=== PATIENT | female | born 1990 | race Native Hawaiian/Other Pacific Islander ===

== ENCOUNTER 2019-04-15 00:13 | Emergency (ER) | payer OTHER ==
[2019-04-15] MEDS ORDERED: MORPHINE 4 MG/1 ML INJ IM ONE (01:18)
[2019-04-15] MEDS ORDERED: ONDANSETRON 4 MG/2 ML INJ IM ONE (01:18)
--- NOTE | 2019-04-15 01:21 | Emergency Department Report ---
ED Chest Pain HPI - General Chief Complaint: Dyspnea/Respdistress Stated Complaint: REDD CHEST PAIN Time Seen by Provider: 04/15/19 01:17 Source: patient Mode of arrival: Ambulatory Limitations: No Limitations - History of Present Illness Initial Comments: 29-year-old female presents to the emergency room complaining of chest pain and shortness of breath about 40 minutes. Patient states this started about 11:30 PM tonight. Patient states that the pain is intermittent but has gotten worse this time. Patient states that the pain starts in the middle of her chest radiates to her back and into her left arm. Patient admits to shortness of breath nausea dizziness and cold sweat. Patient denies any fever. Patient reports a past medical history of hepatitis and lead poisoning as a child. Patient is 2 para 2 last menstrual period 03/09/2019. She reports no medications on a daily basis has no known drug allergies. MD Complaint: chest pain -: During the night Time: 23:30 Onset: during rest Pain Location: substernal Pain Radiation: LUE, back Severity scale (0 -10): 8 Quality: tightness Improves With: nothing Worsens With: nothing re: nausea, diaphoresis, dyspnea. denies: vomting, sense of impending doom Treatments Prior to Arrival: none - Related Data Previous Rx's Medication Instructions Recorded Last Taken Type Ibuprofen [Motrin 600 MG tab] 600 mg PO Q8H PRN #21 tablet 04/15/19 Unknown Rx Allergies Allergy/AdvReac Type Severity Reaction Status Date / Time No Known Allergies Allergy Unverified 04/15/19 00:22 Heart Score - HEART Score History: Slightly suspicious EKG: Normal Age: < 45 Risk factors: No known risk factors Troponin: < normal limit HEART Score: 0 ED Review of Systems ROS: Stated complaint: REDD CHEST PAIN Other details as noted in HPI Comment: All other systems reviewed and negative ED Past Medical Hx - Past Medical History Previous Medical History?: Yes Additional medical history: hepatitis - Surgical History Past Surgical History?: Yes Additional Surgical History: c-sec X 2 - Social History Smoking Status: Former Smoker Substance Use Type: None - Medications Home Medications: Home Medications Medication Instructions Recorded Confirmed Last Taken Type Ibuprofen [Motrin 600 MG tab] 600 mg PO Q8H PRN #21 tablet 04/15/19 Unknown Rx ED Physical Exam - General Limitations: No Limitations General appearance: alert, in no apparent distress - Head Head exam: Present: atraumatic, normocephalic - Eye Eye exam: Present: normal appearance - ENT ENT exam: Present: mucous membranes moist - Neck Neck exam: Present: normal inspection, full ROM. Absent: tenderness, lymphadenopathy - Respiratory Respiratory exam: Present: normal lung sounds bilaterally, chest wall tenderness. Absent: respiratory distress, wheezes, accessory muscle use, decreased breath sounds - Cardiovascular Cardiovascular Exam: Present: regular rate, normal rhythm. Absent: systolic murmur, diastolic murmur, rubs, gallop - GI/Abdominal GI/Abdominal exam: Present: soft, normal bowel sounds - Back Exam Back exam: Present: normal inspection, full ROM - Neurological Exam Neurological exam: Present: alert, oriented X3 - Psychiatric Psychiatric exam: Present: normal affect, normal mood - Skin Skin exam: Present: warm, dry, intact, normal color. Absent: rash ED Course Vital Signs 04/15/19 00:17 Temperature 98.0 F Pulse Rate 83 Respiratory 18 Rate Blood Pressure 127/70 O2 Sat by Pulse 98 Oximetry RASHAWN score - Rashawn Score Age > 65: (0) No Aspirin use within the Past 7 Days: (0) No 3 or more CAD Risk Factors: (0) No 2 or more Angina events in past 24 hrs: (0) No Known CAD with more than 50% Stenosis: (0) No Elevated Cardiac Markers: (0) No ST Deviation Greater than 0.5mm: (0) No RASHAWN Score: 0 ED Medical Decision Making - Lab Data Result diagrams: 04/15/19 01:23 04/15/19 01:23 Laboratory Tests 04/15/19 04/15/19 01:23 01:23 WBC 7.8 RBC 4.22 Hgb 13.1 Hct 38.6 MCV 92 MCH 31 MCHC 34 RDW 13.9 Plt Count 236 Lymph % (Auto) 41.2 H Drew % (Auto) 8.8 H Eos % (Auto) 2.2 Baso % (Auto) 0.5 Lymph # 3.2 Drew # 0.7 Eos # 0.2 Baso # 0.0 Seg Neutrophils % 47.3 Seg Neutrophils # 3.7 Sodium 140 Potassium 3.5 L Chloride 107.2 H Carbon Dioxide 19 L Anion Gap 17 BUN 11 Creatinine 0.6 L Estimated GFR > 60 BUN/Creatinine Ratio 18 Glucose 101 H Calcium 9.0 Total Bilirubin 0.30 AST 50 H ALT 104 H Alkaline Phosphatase 78 Troponin T < 0.010 Total Protein 6.9 Albumin 4.2 Albumin/Globulin Ratio 1.6 - EKG Data EKG shows normal: sinus rhythm Rate: normal - Radiology Data Chest x-ray shows no cardiopulmonary abnormalities. - Medical Decision Making 29-year-old female presents to the emergency room complaining of chest pain and shortness of breath about 40 minutes. Patient states this started abo ut 11:30 PM tonight. Patient states that the pain is intermittent but has gotten worse this time. Patient states that the pain starts in the middle of her chest radiates to her back and into her left arm. Patient admits to shortness of breath nausea dizziness and cold sweat. Patient denies any fever. Patient reports a past medical history of hepatitis and lead poisoning as a child. Patient is 2 para 2 last menstrual period 03/09/2019. She reports no medications on a daily basis has no known drug allergies. Critical care attestation.: If time is entered above; I have spent that time in minutes in the direct care of this critically ill patient, excluding procedure time. ED Disposition Clinical Impression: Chest wall tenderness, Hypokalemia Disposition: DC-01 TO HOME OR SELFCARE Is pt being admited?: No Does the pt Need Aspirin: No Condition: Stable Instructions: Chest Pain (ED), Costochondritis (ED) Additional Instructions: Take pain medication as needed. Increase her potassium fruits such as banana apricots avocados. Follow-up with her primary care provider. Prescriptions: Ibuprofen [Motrin 600 MG tab] 600 mg PO Q8H PRN #21 tablet PRN Reason: Pain Referrals: [facility] [Outside] - 3-5 Days [facility] [Provider Group] - 3-5 Days Forms: Work/School Release Form(ED), Accompanied Note
--- NOTE | 2019-04-15 01:32 | XRay Report ---
CHEST 1 VIEW, 04/15/2019 12:42 AM CLINICAL INFORMATION/INDICATION: Chest pain COMPARISON: None FINDINGS: SUPPORT DEVICES: None. HEART: Cardiac silhouette and pulmonary vascularity are within normal limits. LUNGS/PLEURA: The lungs are well expanded and appear clear of airspace disease or pleural effusion. ADDITIONAL FINDINGS: No additional acute findings. IMPRESSION: 1. No evidence of acute cardiopulmonary process. Signer Name: Lisa Finch MD Signed: 04/15/2019 1:28 AM Workstation Name: [id number]
[2019-04-15 01:35] LABS: Basophils % (Auto) 0.5 % (0.0-1.8); Eosinophils # (Auto) 0.2 K/mm3 (0.0-0.4); Eosinophils % (Auto) 2.2 % (0.0-4.3); Hematocrit 38.6 % (30.3-42.9); Hemoglobin 13.1 gm/dl (10.1-14.3); Lymphocytes # (Auto) 3.2 K/mm3 (1.2-5.4); Lymphocytes % (Auto) 41.2 % (13.4-35.0); Mean Corpuscular HGB Conc 34 % (30-34); Mean Corpuscular Volume 92 fl (79-97); Monocytes # (Auto) 0.7 K/mm3 (0.0-0.8); Monocytes % (Auto) 8.8 % (0.0-7.3); Platelet Count 236 K/mm3 (140-440); Red Blood Count 4.22 M/mm3 (3.65-5.03); Red Cell Distribution Width 13.9 % (13.2-15.2)
[2019-04-15 02:00] LABS: Alanine Aminotransferase 104 units/L (7-56); Albumin 4.2 g/dL (3.9-5); BUN/Creatinine Ratio 18; Blood Urea Nitrogen 11 mg/dL (7-17); Hemolysis Index 8
[2019-04-15 02:52] VITALS: BP 107/45
== END 2019-04-15 02:58 | disposition home or self-care (01) ==
LOC: ED 00:13
DX: R07.89 Other chest pain (principal); R06.02 Shortness of breath; E87.6 Hypokalemia; Z87.891 Personal history of nicotine dependence; Z98.890 Other specified postprocedural states
CPT/HCPCS: 36415; 71045; 80053; 84484; 85025; 93005; 93010; 96372; 99284; J2270; J2405

== ENCOUNTER 2019-09-28 12:37 | Emergency (ER) | payer OTHER ==
--- NOTE | 2019-09-28 15:35 | Emergency Department Report ---
ED Female HPI - General Chief complaint: Urogenital-Female Stated complaint: LUMP ON LEG Time Seen by Provider: 09/28/19 15:01 Source: patient Mode of arrival: Ambulatory Limitations: No Limitations - History of Present Illness Initial comments: This is a 29-year-old female who presents to the ED complaining of right groin pain for the past 3 days. Patient states she has noticed pain in the groin area for the past 3 days, worsened with her pressing on the area. She denies swelling redness or any changes to the outer appearance. She denies feve r/chills/nausea vomiting/abdominal pain/any urinary symptoms or vaginal discharge. - Related Data Previous Rx's Medication Instructions Recorded Last Taken Type Ibuprofen [Motrin 600 MG tab] 600 mg PO Q8H PRN #21 tablet 04/15/19 Unknown Rx Ibuprofen [Motrin] 800 mg PO Q8HR #30 tablet 09/28/19 Unknown Rx Sulfamethoxazole/Trimethoprim 1 each PO BID #20 tablet 09/28/19 Unknown Rx [Bactrim DS TAB] Allergies Allergy/AdvReac Type Severity Reaction Status Date / Time No Known Allergies Allergy Unverified 04/15/19 00:22 ED Review of Systems ROS: Stated complaint: LUMP ON LEG Other details as noted in HPI Comment: All other systems reviewed and negative ED Past Medical Hx - Past Medical History Previous Medical History?: Yes Additional medical history: hepatitis - Surgical History Past Surgical History?: Yes Additional Surgical History: c-sec X 2 - Social History Smoking Status: Never Smoker Substance Use Type: None - Medications Home Medications: Home Medications Medication Instructions Recorded Confirmed Last Taken Type Ibuprofen [Motrin 600 MG tab] 600 mg PO Q8H PRN #21 tablet 04/15/19 Unknown Rx Ibuprofen [Motrin] 800 mg PO Q8HR #30 tablet 09/28/19 Unknown Rx Sulfamethoxazole/Trimethoprim 1 each PO BID #20 tablet 09/28/19 Unknown Rx [Bactrim DS TAB] ED Physical Exam - General Limitations: No Limitations General appearance: alert, in no apparent distress - Head Head exam: Present: atraumatic, normocephalic - Eye Eye exam: Present: normal appearance - ENT ENT exam: Present: mucous membranes moist - Neck Neck exam: Present: normal inspection - Respiratory Respiratory exam: Present: normal lung sounds bilaterally. Absent: respiratory distress - Cardiovascular Cardiovascular Exam: Present: regular rate, normal rhythm. Absent: systolic murmur, diastolic murmur, rubs, gallop - GI/Abdominal GI/Abdominal exam: Present: soft, normal bowel sounds. Absent: distended, tenderness - External exam: Present: normal external exam, other (Lymph node palpated, Right inner groin tenderness, no swelling). Absent: erythema, swelling, lesions, bleeding - Extremities Exam Extremities exam: Present: normal inspection - Back Exam Back exam: Present: normal inspection - Neurological Exam Neurological exam: Present: alert, oriented X3 - Psychiatric Psychiatric exam: Present: normal affect, normal mood - Skin Skin exam: Present: warm, dry, intact, normal color. Absent: rash ED Course Vital Signs 09/28/19 12:50 Temperature 98.5 F Pulse Rate 77 Respiratory 20 Rate Blood Pressure 141/75 O2 Sat by Pulse 98 Oximetry ED Medical Decision Making - Medical Decision Making 29-year-old female presents with right groin pain secondary to lymphadenitis. Patient had no signs of abscess or erythema/cellulitis to the right inner groin area. Discussed with patient sometimes lymph nodes get swollen and painful for some secondary infection. Discussed with patient we will treat with antibiotics. Discussed with patient follow-up with [employer] for further testing. Discussed if symptoms worsen or new symptoms arise to return to the ED. Critical care attestation.: If time is entered above; I have spent that time in minutes in the direct care of this critically ill patient, excluding procedure time. ED Disposition Clinical Impression: Lymph node enlargement, Lymphadenitis Disposition: DC-01 TO HOME OR SELFCARE Is pt being admited?: No Does the pt Need Aspirin: No Condition: Stable Instructions: Lymphadenopathy (ED), Adenitis (ED) Additional Instructions: Make sure to follow up with the primary care physician as discussed. Take all your medications as you've been prescribed. If you have any worsening symptoms or develop new symptoms please return to ED immediately. Prescriptions: Sulfamethoxazole/Trimethoprim [Bactrim DS TAB] 1 each PO BID #20 tablet Ibuprofen [Motrin] 800 mg PO Q8HR #30 tablet Referrals: PRIMARY CARE, [Primary Care Provider] - 3-5 Days [facility] [Outside] - 3-5 Days [facility] [Outside] - 3-5 Days [facility] [Provider Group] - 3-5 Days Forms: Accompanied Note, Work/School Release Form(ED) Time of Disposition: 15:40
[2019-09-29 13:24] VITALS: BP 141/75
== END 2019-09-28 15:54 | disposition home or self-care (01) ==
LOC: ED 12:37
DX: I88.8 Other nonspecific lymphadenitis (principal); Z79.899 Other long term (current) drug therapy; Z98.890 Other specified postprocedural states
CPT/HCPCS: 99281